=== PATIENT | male | born 1980 | race Caucasian/White ===

== ENCOUNTER 2020-01-27 00:52 | Emergency (ER) | payer SELFPAY ==
[2020-01-27] MEDS ORDERED: Rocephin 1000 MG INJ IM ONE (01:17)
[2020-01-27] MEDS ORDERED: Norco 10/325 MG Tablet PO ONE (01:17)
[2020-01-27] MEDS ORDERED: Rocephin 1000 MG INJ ONE (01:19)
[2020-01-27] MEDS ORDERED: XYLOCAINE 1% HCL 20 ML MDV IJ ONE (01:19)
[2020-01-27] MEDS ORDERED: Norco 10/325 MG Tablet ONE (01:19)
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
[2020-01-27 01:33] VITALS: BP 153/100; PULSE 62; O2SAT 99
== END 2020-01-27 01:33 | disposition home or self-care (01) ==
LOC: ED 00:52
DX: K02.9 Dental caries, unspecified (principal); K04.7 Periapical abscess without sinus; K08.9 Disorder of teeth and supporting structures, unspecified
CPT/HCPCS: 96372; 99283; J0696; A9270-GY